=== PATIENT | male | born 1970 | race Caucasian/White ===

== ENCOUNTER → 2017-07-17 | Outpatient (REF) | payer OTHER, MEDICAID | LOC: M SFHCPLAZ 10:39 | PROVIDERS: ATTEND Nurse Practitioner Adult Health | DX: Z00.00 Encounter for general adult medical examination without abnormal findings (principal); K76.0 Fatty (change of) liver, not elsewhere classified; R74.8 Abnormal levels of other serum enzymes ==

== ENCOUNTER → 2018-01-08 | Outpatient (REF) | payer OTHER, MEDICAID ==
[2018-01-08 14:08] LABS: HEMOGLOBIN 13.7 g/dl (13.5-17.5); MEAN CORPUSCULAR HEMOGLOBIN 29.5 pg (27.0-33.0); MEAN CORPUSCULAR HGB CONC 34.3 g/dl (32.0-36.5); MEAN CORPUSCULAR VOLUME 86.2 fl (80.0-96.0); PLATELET COUNT, AUTOMATED 308 10^3/uL (150-450); RED BLOOD COUNT 4.64 10^6/uL (4.30-6.10); RED CELL DISTRIBUTION WIDTH 12.3 % (11.5-14.5); WHITE BLOOD COUNT 9.1 10^3/uL (4.0-10.0)
[2018-01-08 14:23] LABS: TOTAL 25(OH) VITAMIN D 21.5 NG/ML (30.0-100.0)
[2018-01-08 14:39] LABS: ALBUMIN 4.1 GM/DL (3.2-5.2); ALBUMIN/GLOBULIN RATIO 1.14 (1.00-1.93); ALKALINE PHOSPHATASE 20 U/L (45-117); ALT/SGPT 35 U/L (12-78); ANION GAP 6 MEQ/L (8-16); AST/SGOT 22 U/L (7-37); BILIRUBIN,TOTAL 0.3 MG/DL (0.2-1.0); BLOOD UREA NITROGEN 11 MG/DL (7-18); CALCIUM LEVEL 9.5 MG/DL (8.5-10.1); CARBON DIOXIDE LEVEL 29 MEQ/L (21-32); CHLORIDE LEVEL 105 MEQ/L (98-107); CHOLESTEROL LEVEL 217 MG/DL (<200); CHOLESTEROL RISK RATIO 4.822 (<5); CREATININE FOR GFR 0.87 MG/DL (0.70-1.30); GLOMERULAR FILTRATION RATE > 60.0 (>60); GLUCOSE, FASTING 84 MG/DL (70-100); HDL CHOLESTEROL 45 MG/DL (>40); LDL CHOLESTEROL 127.8 MG/DL (<100); NON-HDL-C 172 MG/DL; POTASSIUM SERUM 4.4 MEQ/L (3.5-5.1); SODIUM LEVEL 140 MEQ/L (136-145); TOTAL PROTEIN 7.7 GM/DL (6.4-8.2); TRIGLYCERIDES LEVEL 221 MG/DL (<150)
[2018-01-08 14:56] LABS: ESTIMATED AVERAGE GLUCOSE 103 MG/DL (60-110); HEMOGLOBIN A1c 5.2 %
== END ==
LOC: M SFHCPLAZ 10:43
DX: K76.0 Fatty (change of) liver, not elsewhere classified (principal); Z86.39 Personal history of other endocrine, nutritional and metabolic disease; E78.00 Pure hypercholesterolemia, unspecified; R74.8 Abnormal levels of other serum enzymes; I10 Essential (primary) hypertension

== ENCOUNTER → 2018-01-31 | Outpatient (REF) | payer OTHER, MEDICAID ==
[2018-02-13 08:06] LABS: AMPHETAMINE SCREEN, URINE Negative ng/mL (Cutoff=1000); BARBITURATES SCREEN, URINE Negative ng/mL (Cutoff=200); BENZODIAZEPINES, URINE SCREEN Negative ng/mL (Cutoff=200); CANNABINOID SCREEN, URINE Negative ng/mL (Cutoff=20); COCAINE SCREEN, URINE Negative ng/mL (Cutoff=300); FENTANYL URINE SCREEN Negative pg/mL (Cutoff=2000); METHADONE, URINE SCREEN Negative ng/mL (Cutoff=300); NALOXONE RESULT Positive (.); OPIATE SCREEN, URINE Negative ng/mL (Cutoff=300); OXYCODONE, SCREEN, URINE Negative ng/mL (Cutoff=100); PCP SCREEN, URINE Negative ng/mL (Cutoff=25); SPECIFIC GRAVITY, URINE 1.024 (.); URINE BUPRENORPHINE Positive (.); URINE BUPRENORPHINE Positive (Cutoff=10); URINE BUPRENORPHINE See Final Results ng/mL (Cutoff=10); URINE BUPRENORPHINE CONFIRM 282 ng/mL (Cutoff=10); URINE NORBUPRENORPHINE Positive (.); URINE NORBUPRENORPHINE CONFIRM 870 ng/mL (Cutoff=10); pH, URINE 5.5 (4.5-8.9)
== END ==
LOC: M LAB REF 09:09
DX: F11.21 Opioid dependence, in remission (principal)

== ENCOUNTER → 2018-03-21 | Outpatient (REF) | payer OTHER, MEDICAID ==
[2018-03-21 19:47] LABS: ALBUMIN 3.9 GM/DL (3.2-5.2); ALBUMIN/GLOBULIN RATIO 1.08 (1.00-1.93); ALKALINE PHOSPHATASE 22 U/L (45-117); ALT/SGPT 64 U/L (12-78); ANION GAP 7 MEQ/L (8-16); AST/SGOT 43 U/L (7-37); BILIRUBIN,TOTAL 0.3 MG/DL (0.2-1.0); BLOOD UREA NITROGEN 19 MG/DL (7-18); CALCIUM LEVEL 9.2 MG/DL (8.5-10.1); CARBON DIOXIDE LEVEL 31 MEQ/L (21-32); CHLORIDE LEVEL 103 MEQ/L (98-107); CREATININE FOR GFR 0.97 MG/DL (0.70-1.30); GLOMERULAR FILTRATION RATE > 60.0 (>60); GLUCOSE, FASTING 88 MG/DL (70-100); POTASSIUM SERUM 3.9 MEQ/L (3.5-5.1); SODIUM LEVEL 141 MEQ/L (136-145); TOTAL PROTEIN 7.5 GM/DL (6.4-8.2)
== END ==
LOC: M LAB REF 19:09
DX: I10 Essential (primary) hypertension (principal)
CPT/HCPCS: 80053

== ENCOUNTER → 2018-06-20 | Outpatient (REF) | payer OTHER, MEDICAID ==
[2018-06-20 13:29] LABS: ALBUMIN 4.2 GM/DL (3.2-5.2); ALBUMIN/GLOBULIN RATIO 1.45 (1.00-1.93); ALKALINE PHOSPHATASE 24 U/L (45-117); ALT/SGPT 59 U/L (12-78); ANION GAP 5 MEQ/L (8-16); AST/SGOT 29 U/L (7-37); BILIRUBIN,TOTAL 0.4 MG/DL (0.2-1.0); BLOOD UREA NITROGEN 15 MG/DL (7-18); CALCIUM LEVEL 9.4 MG/DL (8.5-10.1); CARBON DIOXIDE LEVEL 31 MEQ/L (21-32); CHLORIDE LEVEL 105 MEQ/L (98-107); GLOMERULAR FILTRATION RATE > 60.0 (>60); GLUCOSE, FASTING 100 MG/DL (70-100); POTASSIUM SERUM 4.5 MEQ/L (3.5-5.1); SODIUM LEVEL 141 MEQ/L (136-145); TOTAL PROTEIN 7.1 GM/DL (6.4-8.2)
== END ==
LOC: M LAB REF 12:28
DX: I10 Essential (primary) hypertension (principal)
CPT/HCPCS: 80053

== ENCOUNTER → 2018-08-14 | Outpatient (REF) | payer OTHER, MEDICAID ==
[2018-08-14 13:50] LABS: CHOLESTEROL LEVEL 259 MG/DL (<200); CHOLESTEROL RISK RATIO 6.166 (<5); HDL CHOLESTEROL 42 MG/DL (>40); LDL CHOLESTEROL 176 MG/DL (<100); NON-HDL-C 217 MG/DL; TRIGLYCERIDES LEVEL 204 MG/DL (<150)
== END ==
LOC: M LAB REF 12:15
DX: E78.49 Other hyperlipidemia (principal)

== ENCOUNTER → 2018-11-13 | Outpatient (REF) | payer OTHER, MEDICAID | LOC: M LAB REF 14:22 | PROVIDERS: ATTEND Surgery | DX: C44.41 Basal cell carcinoma of skin of scalp and neck (principal) ==

== ENCOUNTER 2018-12-04 20:49 | Emergency (ER) | payer OTHER, SELFPAY ==
[~2018-12-04] VITALS: Ht 157.5 cm; Wt 75.5 kg
[~2018-12-04 20:49] MED LIST: BUPR8SUB SL; LISI-538 PO; OMEP40CA2 PO; PROP10TA56 PO
[2018-12-04 22:19] LABS: INFLUENZA A AMPLIFICATION NEGATIVE (NEGATIVE); INFLUENZA B AMPLIFICATION NEGATIVE (NEGATIVE)
--- NOTE | 2018-12-04 22:26 | REP ---
Clinical: Cough . Comparison: None . Technique: PA and lateral. Findings: The mediastinum and cardiac silhouette are normal. The lung lozano are clear and without acute consolidation, effusion, or pneumothorax. The skeletal structures are intact and normal. Impression: 1. No acute cardiopulmonary process. Electronically Signed by Jamison Xiong MD 12/04/2018 10:17 P
[2018-12-05] MEDS ORDERED: MAGICMW SSP (00:24)
[2018-12-05] MEDS ORDERED: TESS100C PO (00:24)
[2018-12-05] MEDS ORDERED: CLAR10CA3 PO (00:24)
[2018-12-05] MEDS ORDERED: MAGIC MOUTHWASH SUSPENSION BTL SS ONE (00:30)
[2018-12-05] MEDS ORDERED: dexameTHASONE 4 MG/ML 1ML VIAL (J1100) PO ONE (00:30)
[2018-12-05 00:58] VITALS: BP 140/88
== END 2018-12-05 01:04 | disposition home or self-care (01) ==
LOC: M ED 20:49
DX: J02.9 Acute pharyngitis, unspecified (principal); R05 Cough; I10 Essential (primary) hypertension; K21.9 Gastro-esophageal reflux disease without esophagitis; Z87.891 Personal history of nicotine dependence; Z79.899 Other long term (current) drug therapy
CPT/HCPCS: 71046; 87502; 87880; 99284; J1100

== ENCOUNTER 2018-12-12 08:33 | Day surgery (SDC) | payer OTHER, SELFPAY ==
[~2018-12-12] VITALS: Ht 157.5 cm; Wt 70.3 kg
[~2018-12-12 08:33] MED LIST changes: +CLAR10CA3 PO; +MAGICMW SSP; +NS 1,000 ML IV ONE; +TESS100C PO
[2018-12-12] MEDS ORDERED: PROPOFOL 200 MG/20 ML VIAL As Ordered ONE (09:48)
[2018-12-12] MEDS ORDERED: LIDOCAINE 2% INJ 100 MG/5 ML SDV (FOR ANES.) As Ordered ONE (09:48)
[2018-12-12] MEDS ORDERED: METOPROLOL 5 MG/5 ML VIAL As Ordered ONE (10:01)
--- NOTE | 2018-12-12 10:19 | ROOR ---
Patient Name: Chinedu Cannon Procedure Date: 12/12/2018 9:46 AM Date of : 1970 Age: 48 Room: [facility] Gender: Male Note Status: Finalized Procedure: Upper GI endoscopy Indications: Heartburn, Follow-up of esophageal reflux Providers: Hubert Johnson MD Referring MD: Tor QUIROZ MD Requesting Provider: Medicines: Monitored Anesthesia Care Complications: No immediate complications. Procedure: Pre-Anesthesia Assessment: - Prior to the procedure, a History and Physical was performed, and patient medications and allergies were reviewed. The patient is competent. The risks and benefits of the procedure and the sedation options and risks were discussed with the patient. All questions were answered and informed consent was obtained. Patient identification and proposed procedure were verified by the physician, the nurse and the anesthesiologist in the endoscopy suite. Mental Status Examination: alert and oriented. Airway Examination: normal oropharyngeal airway and neck mobility. Respiratory Examination: clear to auscultation. CV Examination: normal. Prophylactic Antibiotics: The patient does not require prophylactic antibiotics. Prior Anticoagulants: The patient has taken no previous anticoagulant or antiplatelet agents. ASA Grade Assessment: II - A patient with mild systemic disease. After reviewing the risks and benefits, the patient was deemed in satisfactory condition to undergo the procedure. The anesthesia plan was to use monitored anesthesia care (MAC). Immediately prior to administration of medications, the patient was re-assessed for adequacy to receive sedatives. The heart rate, respiratory rate, oxygen saturations, blood pressure, adequacy of pulmonary ventilation, and response to care were monitored throughout the procedure. The physical status of the patient was re-assessed after the procedure. The Endoscope was introduced through the mouth, and advanced to the second part of duodenum. The upper GI endoscopy was accomplished without difficulty. The patient tolerated the procedure well. Findings: The Z-line was irregular and was found 37 cm from the incisors. This was biopsied with a cold forceps for histology. Estimated blood loss was minimal. A small hiatal hernia was present. The entire examined stomach was normal. The examined duodenum was normal. Impression: - Z-line irregular, 37 cm from the incisors. Biopsied. - Small hiatal hernia. - Normal stomach. - Normal examined duodenum. Recommendation: - Discharge patient to home (ambulatory). - Continue present medications. - Telephone my office for pathology results in 1 week. Hubert Johnson MD Hubert Johnson MD 12/12/2018 10:19:50 AM Electronically signed by Hubert Johnson MD Number of Addenda: 0 Note Initiated On: 12/12/2018 9:46 AM Estimated Blood Loss: Estimated blood loss: none.
--- NOTE | 2018-12-12 10:22 | ROOR ---
Patient Name: Chinedu Cannon Procedure Date: 12/12/2018 9:48 AM Date of : 1970 Age: 48 Room: [facility] Gender: Male Note Status: Finalized Procedure: Colonoscopy Indications: Screening for colorectal malignant neoplasm Providers: Hbuert Johnson MD Referring MD: Tor QUIROZ MD Requesting Provider: Medicines: Monitored Anesthesia Care Complications: No immediate complications. Procedure: Pre-Anesthesia Assessment: - Prior to the procedure, a History and Physical was performed, and patient medications and allergies were reviewed. The patient is competent. The risks and benefits of the procedure and the sedation options and risks were discussed with the patient. All questions were answered and informed consent was obtained. Patient identification and proposed procedure were verified by the physician, the nurse and the anesthesiologist in the endoscopy suite. Mental Status Examination: alert and oriented. Airway Examination: normal oropharyngeal airway and neck mobility. Respiratory Examination: clear to auscultation. CV Examination: normal. Prophylactic Antibiotics: The patient does not require prophylactic antibiotics. Prior Anticoagulants: The patient has taken no previous anticoagulant or antiplatelet agents. ASA Grade Assessment: II - A patient with mild systemic disease. After reviewing the risks and benefits, the patient was deemed in satisfactory condition to undergo the procedure. The anesthesia plan was to use monitored anesthesia care (MAC). Immediately prior to administration of medications, the patient was re-assessed for adequacy to receive sedatives. The heart rate, respiratory rate, oxygen saturations, blood pressure, adequacy of pulmonary ventilation, and response to care were monitored throughout the procedure. The physical status of the patient was re-assessed after the procedure. The Colonoscope was introduced through the anus and advanced to the cecum, identified by appendiceal orifice and ileocecal valve. The colonoscopy was performed without difficulty. The patient tolerated the procedure well. The quality of the bowel preparation was good. Findings: The perianal and digital rectal examinations were normal. A few small-mouthed diverticula were found in the sigmoid colon. The entire examined colon appeared normal. No additional abnormalities were found on retroflexion. Impression: - Diverticulosis in the sigmoid colon. - The entire examined colon is normal. - No specimens collected. Recommendation: - Discharge patient to home (ambulatory). - Repeat colonoscopy in 10 years for screening purposes. Hubert Johnson MD Hubert Johnson MD 12/12/2018 10:22:00 AM Electronically signed by Hubert Johnson MD Number of Addenda: 0 Note Initiated On: 12/12/2018 9:48 AM Estimated Blood Loss: Estimated blood loss: none. Estimated blood loss: none.
[2018-12-12 10:46] VITALS: BP 131/82
== END 2018-12-12 11:00 | disposition home or self-care (01) ==
LOC: M OPP 08:33
PROVIDERS: ATTEND Surgery
DX: Z12.11 Encounter for screening for malignant neoplasm of colon (principal); R12 Heartburn; K21.9 Gastro-esophageal reflux disease without esophagitis; K57.30 Diverticulosis of large intestine without perforation or abscess without bleeding; K22.8 Other specified diseases of esophagus; K44.9 Diaphragmatic hernia without obstruction or gangrene; I10 Essential (primary) hypertension; E78.00 Pure hypercholesterolemia, unspecified; Z88.8 Allergy status to other drugs, medicaments and biological substances; Z87.891 Personal history of nicotine dependence; Z79.899 Other long term (current) drug therapy

== ENCOUNTER → 2019-03-19 | Outpatient (CLI) | payer OTHER ==
[~2019-03-19] MED LIST changes: +AIRD1INH2 INH; +ATOR1TAB19 PO; +DOXY100C37 PO; -NS 1,000 ML IV ONE; -OMEP40CA2 PO; +OMEP40CA97 PO; +PRAV1TAB39 PO; +VENTAER INH
[2019-03-19 20:26] LABS: BASO % 0.4 % (0.0-1.0); EOS # 0.3 10^3/uL (0.0-0.50); EOS % 3.9 % (0.0-3.0); HEMATOCRIT 39.8 % (42.0-52.0); HEMOGLOBIN 13.5 g/dl (13.5-17.5); LYMPH # 2.7 10^3/uL (1.5-4.5); LYMPH % 35.2 % (24.0-44.0); MEAN CORPUSCULAR HEMOGLOBIN 30.2 pg (27.0-33.0); MEAN CORPUSCULAR HGB CONC 33.9 g/dl (32.0-36.5); MONO # 0.9 10^3/uL (0.0-0.8); MONO % 11.6 % (0.0-5.0); NEUTROPHILS # 3.7 10^3/uL (1.8-7.7); NEUTROPHILS % 48.5 % (36.0-66.0); PLATELET COUNT, AUTOMATED 225 10^3/uL (150-450); RED BLOOD COUNT 4.47 10^6/uL (4.30-6.10); WHITE BLOOD COUNT 7.5 10^3/uL (4.0-10.0)
[2019-03-19 20:27] LABS: ALT/SGPT 71 U/L (12-78); BILIRUBIN,TOTAL 0.2 MG/DL (0.2-1.0); BLOOD UREA NITROGEN 18 MG/DL (7-18); CALCIUM LEVEL 9.7 MG/DL (8.5-10.1); CARBON DIOXIDE LEVEL 28 MEQ/L (21-32); CHLORIDE LEVEL 104 MEQ/L (98-107); CREATININE FOR GFR 1.06 MG/DL (0.70-1.30); GLOMERULAR FILTRATION RATE > 60.0 (>56); GLUCOSE, FASTING 109 MG/DL (70-100); POTASSIUM SERUM 3.9 MEQ/L (3.5-5.1); SODIUM LEVEL 141 MEQ/L (136-145); TOTAL PROTEIN 7.4 GM/DL (6.4-8.2)
[2019-03-22 00:06] LABS: Lyme Disease IgG/IgM Antibodie <0.91 ISR (0.00-0.90); Lyme Disease IgM Ab Quantitati <0.80 index (0.00-0.79)
== END ==
LOC: M WUC 17:22
PROVIDERS: ATTEND Physician Assistant
DX: R25.2 Cramp and spasm (principal)

== ENCOUNTER → 2019-04-18 | Outpatient (REF) | payer OTHER ==
[2019-04-18 13:44] LABS: ALBUMIN 4.1 GM/DL (3.2-5.2); ALT/SGPT 105 U/L (12-78); BILIRUBIN,TOTAL 0.4 MG/DL (0.2-1.0); BLOOD UREA NITROGEN 16 MG/DL (7-18); CALCIUM LEVEL 9.7 MG/DL (8.5-10.1); CARBON DIOXIDE LEVEL 29 MEQ/L (21-32); CHLORIDE LEVEL 102 MEQ/L (98-107); CREATININE FOR GFR 0.95 MG/DL (0.70-1.30); GLOMERULAR FILTRATION RATE > 60.0 (>56); GLUCOSE, FASTING 79 MG/DL (70-100); MAGNESIUM LEVEL 2.5 MG/DL (1.8-2.4); POTASSIUM SERUM 4.7 MEQ/L (3.5-5.1); SODIUM LEVEL 140 MEQ/L (136-145)
[2019-04-18 14:45] LABS: HEMOGLOBIN A1c 5.4 %
== END ==
LOC: M LAB REF 12:23
PROVIDERS: ATTEND Nurse Practitioner Family
DX: R25.2 Cramp and spasm (principal)

== ENCOUNTER → 2019-04-20 | Outpatient (CLI) | payer OTHER ==
[~2019-04-20] MED LIST changes: -AIRD1INH2 INH; -ATOR1TAB19 PO; -DOXY100C37 PO; +OMEP40CA2 PO; -OMEP40CA97 PO; -PRAV1TAB39 PO; -VENTAER INH
[2019-04-20 11:22] LABS: ALBUMIN 3.8 GM/DL (3.2-5.2); ALT/SGPT 87 U/L (12-78); BILIRUBIN,TOTAL 0.3 MG/DL (0.2-1.0); BLOOD UREA NITROGEN 20 MG/DL (7-18); CALCIUM LEVEL 9.4 MG/DL (8.5-10.1); CARBON DIOXIDE LEVEL 28 MEQ/L (21-32); CHLORIDE LEVEL 107 MEQ/L (98-107); CHOLESTEROL LEVEL 285 MG/DL (<200); CHOLESTEROL RISK RATIO 6.477 (<5); CREATININE FOR GFR 0.84 MG/DL (0.70-1.30); GLOMERULAR FILTRATION RATE > 60.0 (>56); GLUCOSE, FASTING 103 MG/DL (70-100); HDL CHOLESTEROL 44 MG/DL (>40); LDL CHOLESTEROL 185 MG/DL (<100); NON-HDL-C 241 MG/DL; POTASSIUM SERUM 4.3 MEQ/L (3.5-5.1); SODIUM LEVEL 139 MEQ/L (136-145); TOTAL PROTEIN 7.1 GM/DL (6.4-8.2); TRIGLYCERIDES LEVEL 280 MG/DL (<150)
== END ==
LOC: M WUC 08:59
PROVIDERS: ATTEND Nurse Practitioner Family
DX: Z00.01 Encounter for general adult medical examination with abnormal findings (principal)

== ENCOUNTER → 2019-06-14 | Outpatient (CLI) | payer OTHER ==
[~2019-06-14] MED LIST changes: -OMEP40CA2 PO; +OMEP40CA97 PO
[2019-06-14 12:14] LABS: ALBUMIN 3.9 GM/DL (3.2-5.2); ALT/SGPT 86 U/L (12-78); BILIRUBIN,TOTAL 0.5 MG/DL (0.2-1.0); BLOOD UREA NITROGEN 18 MG/DL (7-18); CALCIUM LEVEL 9.4 MG/DL (8.5-10.1); CARBON DIOXIDE LEVEL 29 MEQ/L (21-32); CHLORIDE LEVEL 104 MEQ/L (98-107); CPK CREATINE PHOSPHOKINASE 259 U/L (39-308); CREATININE FOR GFR 1.01 MG/DL (0.70-1.30); GLOMERULAR FILTRATION RATE > 60.0 (>56); GLUCOSE, FASTING 101 MG/DL (70-100); MYOGLOBIN 63 NG/ML (16-116); POTASSIUM SERUM 4.5 MEQ/L (3.5-5.1); SODIUM LEVEL 140 MEQ/L (136-145); TOTAL PROTEIN 7.2 GM/DL (6.4-8.2)
== END ==
LOC: M WUC 09:15
PROVIDERS: ATTEND Nurse Practitioner Family
DX: M79.10 Myalgia, unspecified site (principal); R74.8 Abnormal levels of other serum enzymes

== ENCOUNTER → 2019-06-25 | Outpatient (CLI) | payer OTHER ==
[2019-06-25 20:43] LABS: CPK CREATINE PHOSPHOKINASE 542 U/L (39-308); NT-PRO BNP 59 PG/ML (<125)
== END ==
LOC: M WUC 15:53
PROVIDERS: ATTEND Internal Medicine Cardiovascular Disease
DX: R06.02 Shortness of breath (principal); M79.10 Myalgia, unspecified site

== ENCOUNTER → 2019-06-27 | Outpatient (CLI) | payer OTHER ==
[2019-06-27 10:34] LABS: ALBUMIN 3.9 GM/DL (3.2-5.2); ALT/SGPT 87 U/L (12-78); BILIRUBIN,TOTAL 0.4 MG/DL (0.2-1.0); BLOOD UREA NITROGEN 14 MG/DL (7-18); CALCIUM LEVEL 9.5 MG/DL (8.5-10.1); CARBON DIOXIDE LEVEL 30 MEQ/L (21-32); CHLORIDE LEVEL 103 MEQ/L (98-107); CHOLESTEROL LEVEL 191 MG/DL (<200); CHOLESTEROL RISK RATIO 3.979 (<5); CPK CREATINE PHOSPHOKINASE 344 U/L (39-308); CREATININE FOR GFR 0.89 MG/DL (0.70-1.30); GLOMERULAR FILTRATION RATE > 60.0 (>56); GLUCOSE, FASTING 91 MG/DL (70-100); HDL CHOLESTEROL 48 MG/DL (>40); LDL CHOLESTEROL 114 MG/DL (<100); MYOGLOBIN 73 NG/ML (16-116); NON-HDL-C 143 MG/DL; POTASSIUM SERUM 4.8 MEQ/L (3.5-5.1); SODIUM LEVEL 140 MEQ/L (136-145); TOTAL PROTEIN 7.3 GM/DL (6.4-8.2); TRIGLYCERIDES LEVEL 147 MG/DL (<150)
== END ==
LOC: M WUC 08:08
PROVIDERS: ATTEND Nurse Practitioner Family
DX: M79.10 Myalgia, unspecified site (principal)

== ENCOUNTER → 2019-06-28 | Outpatient (CLI) | payer OTHER ==
[~2019-06-28] MED LIST changes: +ISOVUE-370 76% 100ML VIAL (Q9967) As Ordered ONE
--- NOTE | 2019-07-01 09:02 | REP ---
Clinical: Shortness of breath and acute chest pain . Technique: Axial contrast enhanced images from the thoracic inlet to the upper abdomen using 100 ml Isovue 370 intravenous contrast material with multiplanar re-formations. Findings: Satisfactory enhancement of the pulmonary vasculature is achieved and no filling defects are identified to suggest pulmonary embolus. Further evaluation of the mediastinum demonstrates normal thoracic aorta, heart and pericardium. The bilateral lung lozano are well aerated and clear without consolidation pleural effusion or pneumothorax. Tracheobronchial tree is patent. No nodule or mass lesion is identified. No adenopathy noted. Surrounding musculoskeletal structures intact Impression: No evidence for pulmonary embolus. Normal thoracic aorta. No acute mediastinal or pleural parenchymal process. Electronically Signed by Jamison Xiong MD 07/01/2019 08:53 A
== END ==
LOC: M RAD 17:29
PROVIDERS: ATTEND Internal Medicine Cardiovascular Disease
DX: R07.9 Chest pain, unspecified (principal)
CPT/HCPCS: 71275; Q9967

== ENCOUNTER → 2019-07-26 | Outpatient (REF) | payer OTHER ==
[~2019-07-26] MED LIST changes: +AIRD1INH2 INH; +ATOR1TAB19 PO; +DOXY100C37 PO; -ISOVUE-370 76% 100ML VIAL (Q9967) As Ordered ONE; +PRAV1TAB39 PO; +VENTAER INH
[2019-07-26 18:07] LABS: COMPLEMENT C3 151 MG/DL (90-180); COMPLEMENT C4 21 MG/DL (10-40); RHEUMATOID FACTOR QUANT < 10.0 IU/ML (<15.0); URIC ACID 5.8 MG/DL (3.5-7.2)
== END ==
LOC: M LAB REF 16:40
PROVIDERS: ATTEND Nurse Practitioner Family
DX: M79.10 Myalgia, unspecified site (principal)

== ENCOUNTER 2019-07-28 11:44 | Inpatient (IN) | payer OTHER ==
[~2019-07-28] VITALS: Ht 157.5 cm; Wt 73.3 kg
[~2019-07-28 11:44] MED LIST changes: -AIRD1INH2 INH; -ATOR1TAB19 PO; -DOXY100C37 PO; -PRAV1TAB39 PO; -VENTAER INH
[2019-07-28] MEDS ORDERED: ATOR1TAB19 PO (11:56)
[2019-07-28] MEDS ORDERED: DOXY100C37 PO (11:56)
[2019-07-28 12:32] LABS: BASO % 0.6 % (0.0-1.0); EOS # 0.2 10^3/uL (0.0-0.5); EOS % 2.7 % (0.0-3.0); HEMATOCRIT 39.3 % (42.0-52.0); HEMOGLOBIN 13.3 g/dl (13.5-17.5); LYMPH % 31.5 % (24.0-44.0); MEAN CORPUSCULAR HEMOGLOBIN 30.1 pg (27.0-33.0); MEAN CORPUSCULAR HGB CONC 33.8 g/dl (32.0-36.5); MEAN CORPUSCULAR VOLUME 88.9 fl (80.0-96.0); MONO # 0.9 10^3/uL (0.0-0.8); MONO % 13.6 % (0.0-5.0); NEUTROPHILS # 3.3 10^3/uL (1.5-8.5); NEUTROPHILS % 51.3 % (36.0-66.0); PLATELET COUNT, AUTOMATED 208 10^3/uL (150-450); RED BLOOD COUNT 4.42 10^6/uL (4.30-6.10); WHITE BLOOD COUNT 6.4 10^3/uL (4.0-10.0)
--- NOTE | 2019-07-28 12:38 | REP ---
REASON: Stroke-like symptoms. COMPARISON: 12/04/2007 TECHNIQUE: 4.5 mm contiguous transaxial sections were obtained from the skull base to the cerebral convexities with thin cuts through the posterior fossa without the administration of intravenous contrast. FINDINGS: The ventricles and sulci are consistent with the patient's age. There are no extra-axial fluid collections. There is no mass effect. The deep cerebral white matter is consistent with the patient's age. The orbital and petrous structures , cerebellopontine angles, and posterior fossa are unremarkable. The sella turcica, cavernous, and paracavernous structures are essentially unremarkable. The visualized portions of the paranasal sinuses and mastoid air cells are clear. Images of the skull base show no gross abnormality. IMPRESSION: Essentially unremarkable CT examination of the brain. No significant change from the prior exam. Electronically Signed by Karlos Leos DO 07/28/2019 12:40 P
[2019-07-28 12:48] LABS: INR 1.01; PARTIAL THROMBOPLASTIN TIME 26.7 SECONDS (25.0-38.4)
[2019-07-28 13:01] LABS: ALT/SGPT 79 U/L (12-78); BILIRUBIN,DIRECT < 0.1 MG/DL (0.0-0.2); BILIRUBIN,TOTAL 0.3 MG/DL (0.2-1.0); BLOOD UREA NITROGEN 13 MG/DL (7-18); CALCIUM LEVEL 9.5 MG/DL (8.5-10.1); CARBON DIOXIDE LEVEL 28 MEQ/L (21-32); CHLORIDE LEVEL 106 MEQ/L (98-107); CK-MB VALUE MASS 3.3 NG/ML (<3.6); CPK CREATINE PHOSPHOKINASE 326 U/L (39-308); CREATININE FOR GFR 0.89 MG/DL (0.70-1.30); GLOMERULAR FILTRATION RATE > 60.0 (>56); GLUCOSE, FASTING 80 MG/DL (70-100); MAGNESIUM LEVEL 2.1 MG/DL (1.8-2.4); MB/CK RELATIVE INDEX 1.01 (< OR =4); SODIUM LEVEL 141 MEQ/L (136-145); TOTAL PROTEIN 7.5 GM/DL (6.4-8.2); TROPONIN I < 0.02 NG/ML (< 0.10)
--- NOTE | 2019-07-28 13:35 | REP ---
REASON: Stroke-like symptoms. CHEST PORTABLE: FINDINGS: The technique utilized in obtaining the radiograph has magnified the cardiac silhouette and accentuated the interstitial markings. The superior mediastinal structures are midline. The cardiac silhouette is unremarkable in size, shape, and position. The diaphragmatic surfaces of the lungs are regular, and the costophrenic angles are clear. The pulmonary lozano are clear. The imaged osseous structures are intact. IMPRESSION: There is no acute cardiopulmonary disease. The cardiac silhouette is magnified by technique. Electronically Signed by Karlos Leos DO 07/28/2019 02:10 P
[2019-07-28] MEDS ORDERED: ASPIRIN 325 MG TAB PO ONE (13:45)
[2019-07-28] MEDS ORDERED: VENTAER INH (13:59)
[2019-07-28] MEDS ORDERED: AIRD1INH2 INH (13:59)
[2019-07-28] MEDS ORDERED: ALBUTEROL 90 MCG/ACT 8GM HFA INHALER INH PRN (14:30)
--- NOTE | 2019-07-28 16:10 | REPVR ---
PROCEDURE INFORMATION: Exam: MR Head Without Contrast Exam date and time: 07/28/2019 3:25 PM Age: 48 years old Clinical history: Weakness, extremity; Patient HX: Unexplained left sided weakness, parenthesis, CT on pacs; Additional info: Left sided paresthesia TECHNIQUE: Imaging protocol: MR of the head without contrast. COMPARISON: CT Head without contrast 07/28/2019 11:58 AM FINDINGS: Brain: Normal. No acute infarct. No hemorrhage. No significant white matter disease. No edema. Ventricles: Normal. No ventriculomegaly. Bones/joints: Unremarkable. Soft tissues: Unremarkable. Sinuses: Normal as visualized. No acute sinusitis. Mastoid air cells: Normal as visualized. No mastoid effusion. Orbits: Unremarkable. IMPRESSION: No acute intracranial abnormality. Electronically signed by: Memo Pate On 07/28/2019 16:09:41 PM
--- NOTE | 2019-07-28 16:12 | REPVR ---
PROCEDURE INFORMATION: Exam: MR Angiogram Head Without Contrast, Arteries Exam date and time: 07/28/2019 3:25 PM Age: 48 years old Clinical history: Weakness; Additional info: Left ue/le paresthesia. Unexplained left sided weakness, parenthesis, CT on pacs TECHNIQUE: Imaging protocol: MR angiogram head without contrast. Exam focused on the arteries. 3D rendering: MIP reconstructed images were created and reviewed. COMPARISON: CT Head without contrast 07/28/2019 11:58 AM FINDINGS: Right internal carotid artery: Unremarkable. Intracranial segment is patent with no significant stenosis. No aneurysm. Right anterior cerebral artery: Unremarkable. No occlusion or significant stenosis. No aneurysm. Right middle cerebral artery: Unremarkable. No occlusion or significant stenosis. No aneurysm. Right posterior cerebral artery: Unremarkable. No occlusion or significant stenosis. No aneurysm. Right vertebral artery: Unremarkable. No occlusion or significant stenosis. No aneurysm. Left internal carotid artery: Unremarkable. Intracranial segment is patent with no significant stenosis. No aneurysm. Left anterior cerebral artery: Unremarkable. No occlusion or significant stenosis. No aneurysm. Left middle cerebral artery: Unremarkable. No occlusion or significant stenosis. No aneurysm. Left posterior cerebral artery: Unremarkable. No occlusion or significant stenosis. No aneurysm. Left vertebral artery: Unremarkable. No occlusion or significant stenosis. No aneurysm. Basilar artery: Unremarkable. No occlusion or significant stenosis. No aneurysm. IMPRESSION: No acute intracranial abnormality. Electronically signed by: Memo Pate On 07/28/2019 16:11:55 PM
--- NOTE | 2019-07-28 16:16 | REPVR ---
PROCEDURE INFORMATION: Exam: MR Angiography Neck Without Contrast Exam date and time: 07/28/2019 3:55 PM Age: 48 years old Clinical history: Numbness; Patient HX: Unexplained left sided weakness, parenthesis, CT on pacs; Additional info: Left ue/le paresthesia TECHNIQUE: Imaging protocol: Magnetic resonance angiography of the neck without contrast. 3D rendering: MIP reconstructed images were created and reviewed. COMPARISON: MRA BRAIN W/O CONTRAST 07/28/2019 3:14 PM FINDINGS: Right common carotid artery: Unremarkable. No stenosis. No dissection or occlusion. Right internal carotid artery: Unremarkable extracranial segment. No stenosis. No dissection or occlusion. Right external carotid artery: Unremarkable. No stenosis. No dissection or occlusion of the origin. Right vertebral artery: Unremarkable. No stenosis. No dissection or occlusion. Left common carotid artery: Unremarkable. No stenosis. No dissection or occlusion. Left internal carotid artery: Unremarkable extracranial segment. No stenosis. No dissection or occlusion. Left external carotid artery: Unremarkable. No stenosis. No dissection or occlusion of the origin. Left vertebral artery: Unremarkable. No stenosis. No dissection or occlusion. IMPRESSION: No acute abnormality. COMMENT: Reference per NASCET criteria for degree of stenosis: Mild: less than 50% stenosis. Moderate: 50-69% stenosis. Severe: 70-94% stenosis. Near occlusion: 95-99% stenosis. Electronically signed by: Memo Pate On 07/28/2019 16:15:44 PM
[2019-07-28 16:20] VITALS: BP 151/92
--- NOTE | 2019-07-28 16:26 | ECGEPIP ---
[facility] Test Date: 2019-07-28 Pat Name: TOSHIA CARL Department: Room: - Gender: Male Registered Nurse Renal: DIANA : 1970 Requested By: Herbert Dowd Order Number: [id number] Reading MD: Alireza Quesada Measurements Intervals [place] Rate: 64 P: 43 KS: 170 QRS: 8 QRSD: 109 T: 0 QT: 388 QTc: 401 Interpretive Statements SINUS RHYTHM, Within normal limits. No prior ECG available for comparison at the time of interpretation. Electronically Signed on 07-28-2019 16:26:50 EST by Alireza Quesada
--- NOTE | 2019-07-28 16:34 | REPVR ---
PROCEDURE INFORMATION: Exam: MR Cervical Spine Without Contrast Exam date and time: 07/28/2019 3:55 PM Age: 48 years old Clinical history: Numbness; Patient HX: Unexplained left sided weakness, parenthesis, CT on pacs; Additional info: Left ue paresthesia TECHNIQUE: Imaging protocol: Multiplanar magnetic resonance images of the cervical spine without contrast. COMPARISON: MRA CAROTID WITHOUT CONTRAST 07/28/2019 3:37 PM FINDINGS: Vertebrae: Unremarkable. Spinal cord: Normal signal. No cord compression. C2-C3: No significant disc disease. No significant spinal stenosis. C3-C4: No significant disc disease. No significant spinal stenosis. C4-C5: Uncovertebral hypertrophy with mild bilateral neural foramina narrowing. No spinal canal stenosis. C5-C6: Disc bulge. Uncovertebral hypertrophy. Mild to moderate bilateral neural foramina narrowing. No spinal canal stenosis. C6-C7: No significant disc disease. No significant spinal stenosis. C7-T1: No significant disc disease. No significant spinal stenosis. Vertebral arteries: Expected flow voids in the vertebral arteries. Soft tissues: Unremarkable. IMPRESSION: No acute abnormality. Multilevel uncovertebral hypertrophy. Mild bilateral neuroforamina narrowing at C4-C5 and mild to moderate at C5-C6. Electronically signed by: Memo Pate On 07/28/2019 16:33:44 PM
[2019-07-28] MEDS: ENOXAPARIN 40 MG/0.4 ML SYRINGE (J1650) SC SCH (16:57)
[2019-07-28] MEDS ORDERED: LISINOPRIL 20 MG TAB PO ONE (17:00)
[2019-07-28] MEDS ORDERED: OMEPRAZOLE 20 MG CAP PO ONE (17:00)
[2019-07-28] MEDS ORDERED: PRAV1TAB39 PO (18:23)
[2019-07-28] MEDS ORDERED: NS 0.45% 1,000 ML IV ONE (19:00)
[2019-07-28] MEDS: GASTROGRAFIN SOLUTION 30ML PO SCH (19:24)
[2019-07-28] MEDS: ADVAIR HFA 115/21MCG INHALER INH SCH (19:30)
[2019-07-28 20:00] VITALS: BP 108/55
[2019-07-28] MEDS: DOXYCYCLINE HYCLATE 100 MG TAB PO SCH (20:05)
[2019-07-28] MEDS ORDERED: ISOVUE-370 76% 100ML VIAL (Q9967) As Ordered ONE (20:32)
--- NOTE | 2019-07-28 20:59 | HPE ---
DATE OF ADMISSION: 07/28/2019 PRIMARY CARE PROVIDER: [facility], Lyndsay Hanson CHIEF COMPLAINT: Numbness of the left arm and left leg. HISTORY OF PRESENT ILLNESS: 48-year-old male who presented with acute onset of left arm and left leg numbness. The left arm started at 3:30 a.m., awakening him from sleep, unable to feel the left arm. The patient states that he did not sleep on the left side. This has been occasionally happening since summertime. He describes pain in the forearm at times, rated at 6 out of 10 when it is very painful. Left lower extremity at 8:30 started to have some numbness and left foot became cramped and crimped, per the patient. The patient has had similar episodes all summer long. No lower extremity or joint swelling. The patient denies any facial involvement. No motor dysfunction. Able to ambulate without difficulty. No slurring of speech. The patient also complains of sweating at night for the past 2 days, happens about twice a week, usually soaks his bed. He felt some lightheadedness and some sweats when he was putting up lights with his father at home recently. The patient also has had some shortness of breath since December, worsened in the summer, thought to be due to chemicals and gardening, as he does quite a bit of lawn care. The patient has shortness of breath even when he is inside at home and not accompanied by chest pain, pressure or tightness. No dizziness. He had a stress test done by Dr. Quesada in May 2019, which was normal. Plans were for an echocardiogram. He falls asleep frequently during the day but says that he sleeps well at night from 8:00 p.m. to around 6:00 a.m. straight. Occasional snoring. 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 He does have a two to three pack history of smoking for about 10 years and he quit about 15 years ago. The patient denies any migraines, changes in vision. No headaches. No dysphagia or odynophagia. The patient denies any slurring of speech. CT of the brain was negative. MRI of the brain and MRA of the brain were negative. MRI of the cervical spine shows disc bulging with bilateral neuro foramina narrowing at C4-C5, moderate bilateral neuro foramina narrowing at C5-C6, but not central canal stenosis. Vertebral arteries are normal. Multilevel vertebral hypertrophy. Per neurologist, Dr. Bundy, bow maker production this evening, since the patient's MRI was normal he can be continued on 325 mg of aspirin and to followup in the office for further testing. The patient was felt to have Lyme disease and was started on doxycycline. Lyme titers are still pending. PAST MEDICAL HISTORY: 1. Hyperlipidemia. 2. Hiatal hernia. 3. Reflux disease. 4. Migraines. 5. Hearing loss. 6. Elevated liver function tests. 7. Hypertension. He had a stress test done with Dr. Quesada in May 2019, which was normal. ALLERGIES: HYDROCHLOROTHIAZIDE, LIPITOR causing muscle cramping in the legs. PAST SURGICAL HISTORY: 1. Colonoscopy by Dr. Johnson. FAMILY HISTORY: Father in his 60s with hypertension, heart disease, migraines. Mother alive with hypertension, hyperlipidemia, diabetes. Siblings: One half paternal brother, two half paternal sisters who are alive and well with headaches. One brother is an alcohol abuser. 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 Previously smoked one to two packs of cigarettes for about 10 years, quit a decade ago. and currently with a partner of 12 years. Owns his own home. [place] in [place] and has been here since the age of 14. REVIEW OF SYSTEMS: As per history of present illness, 12-point system otherwise negative. HOME MEDICATIONS: - doxycycline 100 mg twice a day - buprenorphine 8 mg sublingually daily - Aer Duo one puff inhaled daily - albuterol as needed two puffs every four hours - Lisinopril 20 mg daily - omeprazole 40 mg daily PHYSICAL EXAMINATION: VITAL SIGNS: Temperature 98.6, pulse 62, sinus, respiratory rate 18, blood pressure 151/92, 96% on room air. GENERAL: Awake, alert and oriented times three. HEENT: Slightly hard of hearing. Pupils are round and reactive to light. Extraocular muscles are intact. Normocephalic, atraumatic. No jugular venous distention (JVD). No thyromegaly. No cervical lymphadenopathy. Moist mucous membranes. LUNGS: Clear to auscultation. No wheezing, rales or rhonchi. HEART: S1, S2. Sinus rhythm. No murmurs, rubs or gallops. ABDOMEN: Obese, soft, nontender, nondistended. EXTREMITIES: No cyanosis, clubbing or pitting edema. Bilateral lower extremities have dorsalis pedis and posterior tibialis noted. SKIN: Warm and dry. Well perfused. [place] in color. NEUROLOGIC: No dysmetria on [id number] testing. Face is symmetric. Speaks in full sentences. Normal repetition. No slurring of speech. Motor function 5/5 times four extremities. No sensory disturbance. LABORATORY DATA: White count 6.4, hemoglobin 13, hematocrit 39, platelet count 208. Sodium 141, potassium 4, chloride 106, bicarbonate 28, BUN 13, creatinine 0.89, glucose 80, calcium 9.5, magnesium 2.1, total bilirubin 0.3, direct bilirubin less than 0.1, AST 34, ALT 79, alkaline phosphatase 26, total CK 326, MB fraction 3.3, relative index 1, troponin less than 0.02, total protein 7.5, albumin 4. INR 1.01. IMAGING STUDIES: MRI of the brain on 07/28/2019 showed no acute intracranial abnormality. MRA of the brain showed no acute intracranial abnormality. Carotid artery MRI showed no acute abnormality. Cervical spine MRI showed no acute abnormality. Mild bilateral neuro foraminal narrowing at C4-C5 with mild to moderate C5-C6. ASSESSMENT AND PLAN: This is a 48-year-old male who presented to the emergency room with on and off numbness of the left upper and lower extremity prompting him to come to the emergency room. MRI is negative. CURRENT ISSUES: 1. Left upper and lower extremity numbness, most likely due to peripheral neuropathy. Outpatient followup with Dr. Bundy. No acute CVA note on MRI of the brain. MRI of the cervical spine shows neuro foraminal narrowing. Defer for EMG studies. Check TSH level. Rule out carpal tunnel. May need lumbar spine MRI. 2. Elevated CPK, most likely due to myositis from statins. The patient is changed to Pravachol. 3. History of hyperlipidemia. Check lipid profile in the morning and start on Pravachol. 4. Shortness of breath. Pulmonary function tests as an outpatient. Currently no wheezing on examination. The patient had a stress test done, which was negative, according to the patient, read by Dr. Quesada. 5. Muscle pains. The patient's CLINT screen was normal. Rheumatoid factor was less than 150. He has normal complement levels and double stranded DNA. Rheumatoid factor was less than 10, but there is no joint bogginess. 6. Reflux. Continue on proton pump inhibitor. 7. Hypertension. Continue on Lisinopril for now. 8. Probable Lyme disease. Serology testing is pending. Previous IgG, IgM in October were negative. 9. Hepatitis serology for abnormal liver function tests were negative in 2007. 10. Abnormal liver function tests. Recheck hepatitis serology. Discharge in the morning.
--- NOTE | 2019-07-28 21:34 | REPVR ---
PROCEDURE INFORMATION: Exam: CT Abdomen And Pelvis With Contrast Exam date and time: 07/28/2019 8:47 PM Age: 48 years old Clinical history: Abdominal pain; Night sweats; Additional info: R/O lymphoma TECHNIQUE: Imaging protocol: Computed tomography of the abdomen and pelvis with intravenous contrast. Radiation optimization: All CT scans at this facility use at least one of these dose optimization techniques: automated exposure control; mA and/or kV adjustment per patient size (includes targeted exams where dose is matched to clinical indication); or iterative reconstruction. Contrast material: ISOVUE 370; Contrast volume: 100 ml; Contrast route: IV; COMPARISON: Abdomen, limited US 04/14/2014 7:21:02 AM (The report from this study was not available for review at the time of this interpretation.) FINDINGS: Lungs: The imaged lung bases are clear. Heart: No cardiomegaly. No pericardial effusion. Liver: The attenuation of the liver is more than 40 Hounsfield units lower in attenuation compared to the spleen, which is compatible with fatty liver infiltration. No liver lesion is seen. The contour of the liver is smooth. No hepatomegaly is noted. The liver measures 14.5 cm in craniocaudal dimension at the level of the right mid clavicular line. Gallbladder and bile ducts: No calcified gallstones are seen. No gallbladder wall thickening, pericholecystic fluid, or pericholecystic inflammatory changes are identified. No dilation of the intrahepatic or extrahepatic bile ducts is noted. Pancreas: Normal. No ductal dilation. Spleen: Normal. No splenomegaly is noted. The spleen measures 10.2 cm in length. Incidental note is made of a small accessory spleen. Adrenals: Normal. No mass. Kidneys and ureters: The kidneys are normal in appearance. No renal lesion is identified. No calculi are seen in the kidneys or ureters. There is no hydronephrosis or hydroureter. There are no wedge-shaped areas of low attenuation in the kidneys to suggest pyelonephritis. There is no renal abscess or perinephric fluid collection. Stomach and bowel: There is no evidence for a bowel obstruction, diverticulosis, diverticulitis, colitis, pneumatosis intestinalis, intussusception, volvulus, or perforated viscus. There is a mild to moderate amount of formed stool in the colon. Appendix: The retrocecal appendix is normal. No evidence for appendicitis. Intraperitoneal space: Unremarkable. No fluid collection. No free air. Retroperitoneal space: Unremarkable. No fluid collection. No mass. Vasculature: The abdominal aorta is patent, normal in caliber, and there is no dissection. The renal arteries, celiac artery, superior mesenteric artery, inferior mesenteric artery, iliac arteries, and common femoral arteries are patent. The portal veins, splenic vein, superior mesenteric vein, inferior mesenteric vein, and renal veins are patent. Lymph nodes: There are 2 nonspecific precaval lymph nodes measuring 10 mm and 11 mm in short axis. No other abnormally enlarged lymph nodes are noted in the abdomen or pelvis. Bladder: Unremarkable. No calculi or masses are noted in the bladder. Reproductive: There are calcifications in the prostate gland. The seminal vesicles are unremarkable. Bones/joints: The imaged bony structures are intact. There is no suspicious osteolytic or osteoblastic lesion. There is a mild levoscoliosis of the lumbar spine and degenerative changes in the lumbar spine. Soft tissues: Unremarkable. No hernia. IMPRESSION: 1. Two nonspecific enlarged precaval lymph nodes. No other abnormally enlarged lymph nodes in the abdomen or pelvis. 2. No mass in the abdomen or pelvis. 3. Fatty liver. Electronically signed by: Hector Jorgensen On 07/28/2019 21:33:43 PM
[2019-07-29 04:00] VITALS: BP 116/59
[2019-07-29 08:00] VITALS: BP 140/65
[2019-07-29] MEDS: ADVAIR HFA 115/21MCG INHALER INH SCH (08:12)
[2019-07-29 08:50] LABS: HEMATOCRIT 39.6 % (42.0-52.0); HEMOGLOBIN 13.4 g/dl (13.5-17.5); MEAN CORPUSCULAR HGB CONC 33.8 g/dl (32.0-36.5); MEAN CORPUSCULAR VOLUME 88.8 fl (80.0-96.0); PLATELET COUNT, AUTOMATED 209 10^3/uL (150-450); RED BLOOD COUNT 4.46 10^6/uL (4.30-6.10); WHITE BLOOD COUNT 5.7 10^3/uL (4.0-10.0)
[2019-07-29] MEDS ORDERED: ASPIRIN ENTERIC 325 MG TAB PO SCH (09:00)
[2019-07-29] MEDS ORDERED: BUPRENORPHINE/NALOXONE 8-2MG SUBLINGUAL TABLET(SUBOXONE) SL SCH (09:00)
[2019-07-29] MEDS ORDERED: OMEPRAZOLE 20 MG CAP PO SCH (09:00)
[2019-07-29] MEDS ORDERED: LISINOPRIL 20 MG TAB PO SCH (09:00)
[2019-07-29] MEDS ORDERED: ATORVASTATIN 10 MG TAB PO SCH (09:00)
[2019-07-29] MEDS ORDERED: NON-FORMULARY 1 EA EA INH SCH (09:00)
[2019-07-29] MEDS: ENOXAPARIN 40 MG/0.4 ML SYRINGE (J1650) SC SCH (09:09)
[2019-07-29 09:10] VITALS: BP 116/59
[2019-07-29 09:10] LABS: ALBUMIN 3.7 GM/DL (3.2-5.2); ALT/SGPT 78 U/L (12-78); BILIRUBIN,TOTAL 0.3 MG/DL (0.2-1.0); BLOOD UREA NITROGEN 11 MG/DL (7-18); CALCIUM LEVEL 9.3 MG/DL (8.5-10.1); CARBON DIOXIDE LEVEL 26 MEQ/L (21-32); CHLORIDE LEVEL 106 MEQ/L (98-107); CHOLESTEROL LEVEL 195 MG/DL (<200); CHOLESTEROL RISK RATIO 4.148 (<5); CREATININE FOR GFR 0.97 MG/DL (0.70-1.30); GLOMERULAR FILTRATION RATE > 60.0 (>56); GLUCOSE, FASTING 127 MG/DL (70-100); HDL CHOLESTEROL 47 MG/DL (>40); LDL CHOLESTEROL 116 MG/DL (<100); NON-HDL-C 148 MG/DL; POTASSIUM SERUM 4.2 MEQ/L (3.5-5.1); SODIUM LEVEL 139 MEQ/L (136-145); TOTAL PROTEIN 7.6 GM/DL (6.4-8.2); TRIGLYCERIDES LEVEL 159 MG/DL (<150)
[2019-07-29] MEDS: DOXYCYCLINE HYCLATE 100 MG TAB PO SCH (09:10)
--- NOTE | 2019-07-29 13:48 | ECHO ---
DATE OF PROCEDURE: 07/29/2019 REFERRING PHYSICIAN: Dr. Grace Briggs INDICATION: Transient cerebral ischemia, unspecified. HEIGHT: 157 cm WEIGHT: 73 kg 2D MEASUREMENTS: Ventricular septum: 0.75 cm Posterior wall: 1.07 cm Left ventricle diastole: 4.6 cm Left atrium: 3.8 cm Left atrial wall index 19. LVOT: 2.0 cm Aortic root: 2.5 cm Inferior vena cava: 1.5 cm with normal respiratory variation DOPPLER MEASUREMENTS: Aortic valve velocity: 149 cm/s LVOT velocity: 129 cm/s LVOT VTI: 25.4 cm No aortic regurgitation. No mitral regurgitation. Very mild tricuspid regurgitation. No pulmonic regurgitation. Mitral E velocity: 80.5 cm/s Mitral A velocity: 40.5 cm/s Mitral deceleration time: 173 ms Very mild tricuspid regurgitation. Pulmonary acceleration time 183 ms. MITRAL ANNULAR TISSUE DOPPLER: E prime lateral: 9.85 cm/s E prime septal: 9.3 cm/s DESCRIPTION: Rhythm was sinus. Image quality was fair. No pericardial effusion. This was a 2D, M-mode, color flow Doppler and pulse wave Doppler examination and included mitral annular tissue Doppler. CONCLUSIONS: 1. Normal echocardiogram Doppler. 2. Normal left ventricle internal dimensions and wall thickness. Normal regional LV wall motion and wall thickening. Normal LV systolic function. Left ventricular ejection fraction 65-70% by visual estimate. No LV diastolic function.
[2019-07-30 14:10] LABS: ANTINUCLEAR ANTIBODIES DIRECT Negative (Negative)
--- NOTE | 2019-07-30 15:55 | DSES ---
DATE OF ADMISSION: 07/28/2019 DATE OF DISCHARGE: 07/29/2019 PRIMARY DISCHARGE DIAGNOSES: 1. Peripheral neuropathy, possible carpal tunnel syndrome bilaterally. 2. Cervical spine C4-C5, C5-C6 mild to moderate neuro foraminal narrowing. 3. Complaints of night sweats with abnormal nonspecific enlarged precaval lymph nodes. 4. Muscle cramping. 5. Hyperlipidemia. 6. Mild rhabdomyolysis with normal creatinine. 7. Muscle aches with atorvastatin. 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 He has been complaining of on and off numbness of the left arm and left leg for the past 3 months since the summertime, accompanied with some shortness of breath, which occurs with exertion. He had a stress test done, which was negative. The patient had no facial involvement or motor complaints. Also complains of significant muscle aches bilateral thighs and calves, calling them cramped and a lot of crimping. The patient was complaining of difficulty ambulating at times also with pain in his lower extremities. MRI of the brain was negative for acute CVA. MRA of the brain was negative. MRA of the carotids was negative. MRI of the cervical spine shows foraminal narrowing at C4-C5, C5-C6. Per neurologist integration manager, Dr. Bundy, the patient is continued on aspirin 325 mg daily with outpatient followup for further testing, possible EMG/nerve conduction studies, as well as lumbar spine MRI. The patient had been on doxycycline for presumed Lyme disease and had been sent to a brainer in [place] for multiple complaints. CLINT is still pending here. Rheumatoid factor was negative. The patient had complained of night sweats. CT of the abdomen and pelvis and CT of the chest were all essentially negative, but with a nonspecific finding of precaval lymph nodes. QuantiFERON testing was pending. He complains of generalized weakness, increased sleepiness. No changes in appetite, weight loss, or fever or unknown origin. The patient had resolution of his symptoms during this admission. Complete blood count (CBC), metabolic panel, liver function tests were within normal limits. His Lipitor was discontinued due to complaints of myalgias/muscle aches. Total CK was only slightly elevated at 325 with normal creatinine. The patient was prescribed pravastatin, which he does not have prescription coverage for. LABORATORIES ON DISCHARGE: White count 5.7, hemoglobin 13, hematocrit 39, platelet count 209. Sodium 139, potassium 4.2, chloride 106, bicarbonate 26, BUN 11, creatinine 0.97, glucose 127, magnesium 2.1, total bilirubin 0.3, AST 34, ALT 78, alkaline phosphatase 21, total CK 326, MB fraction 3.3, troponin less than 0.02, total protein 7.6, albumin 3.7, triglycerides 159, total cholesterol 195, LDL 169, non HDL 148, total HDL 47. Microbiology: None. Serology: CLINT screen is pending. QuantiFERON test is pending. IMAGING STUDIES: CT of the head on 07/28/[address] of the brain. MRI of the brain showed no acute intracranial pathology. MRA of the brain with normal intracranial vessels. MRI of the carotids showed no carotid artery stenosis. Cervical MRI showed C4-C5, C5-C6 bilateral neuro foramina narrowing with multilevel vertebral hypertrophy. CT of the abdomen and pelvis with nonspecific enlarged precaval lymph nodes, two noted, no other abnormally enlarged lymph nodes in the abdomen or pelvis. No mass in the abdomen or pelvis. FOLLOWUP ISSUES: Due to complaints of night sweats, the patient's primary care provider should refer to hematology, as he also complains of generalized weakness and increase in sleepiness. There are two nonspecific precaval lymph nodes that may need monitoring. Neurology referral for possible carpal tunnel bilaterally, as well as cervical peripheral neuropathy. Defer to neurology for MRI of the lumbar spine and nerve conduction studies or EMG. Time spent on discharge: 30 minutes.
== END 2019-07-29 11:36 | disposition home or self-care (01) | DRG 48 ==
LOC: M ED 11:44 → M ED INP 14:02 → M PSY 14:23 → M ED INP 14:53 → M PCU 16:16
PROVIDERS: ADMIT General Practice; ATTEND General Practice
DX: G62.9 Polyneuropathy, unspecified (principal); M62.82 Rhabdomyolysis; E78.5 Hyperlipidemia, unspecified; K44.9 Diaphragmatic hernia without obstruction or gangrene; G56.03 Carpal tunnel syndrome, bilateral upper limbs; K21.9 Gastro-esophageal reflux disease without esophagitis; G43.909 Migraine, unspecified, not intractable, without status migrainosus; I10 Essential (primary) hypertension; Z88.8 Allergy status to other drugs, medicaments and biological substances; Z87.891 Personal history of nicotine dependence; Z79.899 Other long term (current) drug therapy

== ENCOUNTER → 2019-09-18 | Outpatient (CLI) | payer OTHER ==
[~2019-09-18] MED LIST changes: +AIRD1INH2 INH; +ATOR1TAB19 PO; +DOXY100C37 PO; +GASTROGRAFIN SOLUTION 30ML (Q9963) As Ordered ONE; +ISOVUE-370 76% 100ML VIAL (Q9967) As Ordered ONE; +PRAV1TAB39 PO; +VENTAER INH
--- NOTE | 2019-09-19 04:19 | REP ---
Clinical: Adenopathy. Technique: Axial contrast enhanced images from the thoracic inlet to the upper abdomen with coronal and sagittal re-formations using 100 ml Isovue 370 intravenous contrast material. Comparison: 06/28/2019. Findings: Mediastinum demonstrates normal thoracic aorta, pulmonary vasculature and heart/pericardium. No axillary, hilar, or mediastinal adenopathy. The bilateral lung lozano are well-aerated and symmetric. No consolidation, significant nodule, or mass lesion. No pleural effusion. No pneumothorax. Tracheobronchial tree is patent. Surrounding musculoskeletal structures are intact. Impression: Normal contrast enhanced chest CT. Electronically Signed by Jamison Xiong MD 09/19/2019 04:11 A
--- NOTE | 2019-09-19 04:25 | REP ---
Clinical: Adenopathy. Technique: Axial contrast enhanced images from the lung bases to the pubic symphysis using oral (per protocol) and 100 ml Isovue 370 intravenous contrast material with coronal and sagittal re-formations. Precontrast and delayed images of the abdomen obtained. Comparison: 07/28/2019. Findings: Fatty infiltration to the liver noted without focal hepatic lesion. Spleen, pancreas, gallbladder, bilateral adrenal glands and kidneys are normal. The enteric system is without obstruction or acute inflammatory process. Pelvis demonstrates normal bladder and age appropriate prostate/seminal vesicles. No ascites. No free air. No adenopathy. Abdominal aorta and vasculature normal. Musculoskeletal structures are intact. Impression: Hepatic steatosis, otherwise normal CT of the abdomen and pelvis. No acute abdominopelvic pathology appreciated. Electronically Signed by Jamison Xiong MD 09/19/2019 04:16 A
== END ==
LOC: M RAD 13:00
PROVIDERS: ATTEND Internal Medicine Hematology & Oncology
DX: I86.0 Sublingual varices (principal)
CPT/HCPCS: 71260; 74178; Q9963; Q9967

== ENCOUNTER → 2019-09-30 | Outpatient (CLI) | payer OTHER ==
[~2019-09-30] MED LIST changes: -GASTROGRAFIN SOLUTION 30ML (Q9963) As Ordered ONE; -ISOVUE-370 76% 100ML VIAL (Q9967) As Ordered ONE
--- NOTE | 2019-09-30 19:53 | REP ---
Skeletal survey: AP and lateral skull: There are a few small lucencies. These are nonspecific and could represent venous lakes, echo data granulations or true lytic lesions. AP and lateral cervical spine: There are no lytic lesions. There is degenerative disc disease at C5-6 and C6-7. Thoracic spine AP and lateral views: There are no lytic lesions. There is multilevel degenerative disc disease and mild kyphosis and mild scoliosis convex right. Lumbar spine AP and lateral views: There are no lytic lesions. There is mild degenerative disc disease at L3-4, L4-5 and L5 S1. AP pelvis: There are no lytic lesions. The sacroiliac articulations and hip articulations are unremarkable. Bilateral humeri: There are no lytic lesions. Mineralization is normal. Bilateral femurs : There are no lytic lesions. Mineralization is normal. Electronically Signed by Ted Ramsey MD 09/30/2019 07:44 P
== END ==
LOC: M RAD 15:44
PROVIDERS: ATTEND Internal Medicine Hematology & Oncology
DX: I89.0 Lymphedema, not elsewhere classified (principal)

== ENCOUNTER → 2019-10-21 | Outpatient (CLI) | payer OTHER ==
--- NOTE | 2019-10-23 11:24 | SLEEPHOME ---
DATE OF PROCEDURE: 10/21/2019 ORDERED BY: Dr. Jenniffer Hodges Diagnostic home sleep testing was performed due to concern for the obstructive sleep apnea syndrome in this patient with history of excessive somnolence and nonrestorative sleep who has comorbidities of hypertension and asthma. For testing a nocturnal T3 respiratory monitoring device was used. Continuous record was made of pulse, oxygen saturation, airflow, chest and abdominal strain and body position. 9 hours and 59 minutes of data were reviewed. There were 9 hours marked as time in bed. During the interval marked time in bed, there were 72 respiratory events identified of 10 seconds in duration or greater for a respiratory event index of 80. The events were primarily obstructive, though 28 of the 72 events were more central or mixed in description. Baseline pulse rate 61 beats per minute, pulse rate ranged 53-86. Baseline saturation was 94%. Saturations fell to 90%. Testing was performed in both the supine and nonsupine positions. IMPRESSION: Abnormal home sleep testing with repetitive respiratory events and oxygen desaturations to 90% with a respiratory event index of 80 is consistent with the obstructive sleep apnea syndrome. RECOMMENDATIONS: The patient should be encouraged to undergo formal sleep evaluation, particularly in light of the frequency of central events identified.
== END ==
LOC: M SLEEP HO 10:55
PROVIDERS: ATTEND Internal Medicine Pulmonary Disease
DX: G47.30 Sleep apnea, unspecified (principal)

== ENCOUNTER → 2019-11-27 | Outpatient (CLI) | payer OTHER ==
--- NOTE | 2019-11-28 14:55 | SLEEPCENT ---
DATE OF PROCEDURE: 11/26/2019 ORDERED BY: Dr. Hodges Nocturnal polysomnography was performed for the titration of pressure therapy in this patient with obstructive sleep apnea syndrome based on clinical evaluation confirmed by home testing revealing a respiratory event index of 80. For testing a ResMed AirFit F30 full-face mask of medium size was used; 4 cm of water pressure were applied to the circuit and the lights were extinguished. 8 hours and 13 minutes of data were reviewed. There were 416 minutes of sleep identified. Sleep latency was prolonged 41 minutes. Rapid eye movement (REM) latency was normal at 72 minutes. Sleep architecture initially improved. Overall sleep efficiency was 85.2%. The patient's electrocardiogram showed a sinus rhythm with an average heart rate of 58 beats per minute. Electroencephalogram (EEG) showed normal waveforms for awake and sleep. Respiratory events persisted prompting an increase in CPAP pressure late in the study. Central apneas emerged making further titration difficult. Best sleep was seen on a CPAP pressure of +7. IMPRESSION: Obstructive sleep apnea syndrome (G47.33). RECOMMENDATIONS: Though an optimal pressure for CPAP was unable to be identified during the study the initiation of CPAP at a pressure of +7 should improve the continuity of the patient's sleep. If symptoms persist, close clinical followup is recommended and a full night re-titration once the patient is accustomed to device may be helpful. Given the occurrence of central apneas the use of a bilevel device may be needed at that time as well as a backup rate.
== END ==
LOC: M SLEEP 20:00
PROVIDERS: ATTEND Internal Medicine Pulmonary Disease
DX: G47.33 Obstructive sleep apnea (adult) (pediatric) (principal)

== ENCOUNTER → 2020-06-10 | Outpatient (CLI) | payer OTHER ==
[~2020-06-10] MED LIST changes: +FLON1SPR NARES; +PRED10TA2 PO
[2020-06-10 14:37] LABS: BASO % 0.3 % (0.0-1.0); EOS # 0.1 10^3/uL (0.0-0.5); EOS % 1.9 % (0.0-3.0); HEMOGLOBIN 12.5 g/dl (13.5-17.5); LYMPH # 2.1 10^3/uL (1.5-5.0); LYMPH % 31.3 % (24.0-44.0); MEAN CORPUSCULAR HEMOGLOBIN 30.3 pg (27.0-33.0); MEAN CORPUSCULAR HGB CONC 34.7 g/dl (32.0-36.5); MEAN CORPUSCULAR VOLUME 87.4 fl (80.0-96.0); MONO # 0.8 10^3/uL (0.0-0.8); MONO % 11.8 % (0.0-5.0); NEUTROPHILS # 3.7 10^3/uL (1.5-8.5); NEUTROPHILS % 54.6 % (36.0-66.0); PLATELET COUNT, AUTOMATED 226 10^3/uL (150-450); RED BLOOD COUNT 4.12 10^6/uL (4.30-6.10); WHITE BLOOD COUNT 6.7 10^3/uL (4.0-10.0)
[2020-06-10 15:15] LABS: ALBUMIN 3.9 GM/DL (3.2-5.2); ALT/SGPT 41 U/L (12-78); BILIRUBIN,TOTAL 0.2 MG/DL (0.2-1.0); BLOOD UREA NITROGEN 18 MG/DL (7-18); CALCIUM LEVEL 9.4 MG/DL (8.5-10.1); CARBON DIOXIDE LEVEL 26 MEQ/L (21-32); CHLORIDE LEVEL 104 MEQ/L (98-107); CREATININE FOR GFR 0.99 MG/DL (0.70-1.30); GLOMERULAR FILTRATION RATE > 60.0 (>56); GLUCOSE, FASTING 114 MG/DL (70-100); IMMUNOGLOBULIN G 733 MG/DL (681-1648); IMMUNOGLOBULIN M 89.8 MG/DL (40-230); IRON (FE) 95 UG/DL (65-175); POTASSIUM SERUM 3.9 MEQ/L (3.5-5.1); SODIUM LEVEL 138 MEQ/L (136-145)
--- NOTE | 2020-06-15 09:21 | REP ---
SKULL SERIES HISTORY: Lymph node enlargement. Evaluate lucencies. COMPARISON RADIOGRAPHS: 09/30/2019. FINDINGS: Multiple views of the calvarium show a single stable radiolucency in the right temporoparietal region. This is most compatible with arachnoid granulation. Bony calvarium is otherwise intact. The patient is edentulous. IMPRESSION: No significant calvarial lesion noted. MTDD
== END ==
LOC: M LAB 13:56
PROVIDERS: ATTEND Internal Medicine Hematology & Oncology
DX: R59.9 Enlarged lymph nodes, unspecified (principal); Z88.8 Allergy status to other drugs, medicaments and biological substances

== ENCOUNTER → 2020-06-10 | Outpatient (CLI) | payer OTHER ==
[~2020-06-10] MED LIST changes: -FLON1SPR NARES; -PRED10TA2 PO
--- NOTE | 2020-06-15 09:20 | REP ---
BILATERAL HAND SERIES: 8-VIEWS HISTORY: Bilateral hand pain. Rule out inflammatory arthritis, erosions, soft tissue swelling. FINDINGS: Four views of each hand are presented. Overall mineralization pattern is normal. There is soft tissue swelling along the distal interphalangeal (DIP) joints of the index and long fingers on the right along the radial aspect. There is mild soft tissue swelling about the distal interphalangeal (DIP) joint of the index finger on the left. No erosive change is seen on either side. Joint spaces are preserved. IMPRESSION: Mild soft tissue swelling as above. No erosive changes seen. Normal mineralization. MTDD
== END ==
LOC: M RAD 14:01
PROVIDERS: ATTEND Internal Medicine Rheumatology
DX: M79.10 Myalgia, unspecified site (principal); M25.50 Pain in unspecified joint; M79.89 Other specified soft tissue disorders

== ENCOUNTER → 2021-11-08 | Outpatient (CLI) | payer OTHER ==
[~2021-11-08] MED LIST changes: +DOXY-443 PO; -DOXY100C37 PO; +FLON1SPR NARES; -LISI-538 PO; +LISI20TA33 PO; +OMEP40CA4 PO; -OMEP40CA97 PO; +PRED10TA2 PO
[2021-11-08 10:46] LABS: HEMATOCRIT 35.8 % (42.0-52.0); HEMOGLOBIN 12.2 g/dl (13.5-17.5); MEAN CORPUSCULAR HEMOGLOBIN 29.5 pg (27.0-33.0); MEAN CORPUSCULAR HGB CONC 34.1 g/dl (32.0-36.5); MEAN CORPUSCULAR VOLUME 86.5 fl (80.0-96.0); PLATELET COUNT, AUTOMATED 214 10^3/uL (150-450); RED BLOOD COUNT 4.14 10^6/uL (4.30-6.10); WHITE BLOOD COUNT 6.2 10^3/uL (4.0-10.0)
[2021-11-08 11:17] LABS: ALT/SGPT 37 U/L (12-78); BILIRUBIN,TOTAL 0.2 MG/DL (0.2-1.0); BLOOD UREA NITROGEN 18 MG/DL (7-18); CALCIUM LEVEL 9.7 MG/DL (8.5-10.1); CARBON DIOXIDE LEVEL 29 MEQ/L (21-32); CHLORIDE LEVEL 107 MEQ/L (98-107); CHOLESTEROL LEVEL 177 MG/DL (<200); CREATININE FOR GFR 1.04 MG/DL (0.70-1.30); GLOMERULAR FILTRATION RATE > 60.0 (>56); GLUCOSE, FASTING 107 MG/DL (70-100); HDL CHOLESTEROL 50 MG/DL (>40); LDL CHOLESTEROL 102 MG/DL (<100); NON-HDL-C 127 MG/DL; POTASSIUM SERUM 4.3 MEQ/L (3.5-5.1); SODIUM LEVEL 142 MEQ/L (136-145); TOTAL PROTEIN 7.1 GM/DL (6.4-8.2); TRIGLYCERIDES LEVEL 126 MG/DL (<150)
== END ==
LOC: M WUC 08:24
PROVIDERS: ATTEND Physician Assistant
DX: I10 Essential (primary) hypertension (principal); E78.2 Mixed hyperlipidemia

== ENCOUNTER → 2022-04-29 | Outpatient (REF) | payer OTHER | LOC: M LAB REF 08:48 | PROVIDERS: ATTEND Family Medicine Addiction Medicine | DX: R19.5 Other fecal abnormalities (principal) ==

== ENCOUNTER → 2022-06-16 | Outpatient (CLI) | payer OTHER ==
[~2022-06-16] MED LIST changes: +ATOR1TAB19
== END ==
LOC: M WHC 08:24
PROVIDERS: ATTEND Family Medicine Addiction Medicine
DX: R10.13 Epigastric pain (principal)

== ENCOUNTER → 2022-09-25 | Outpatient (CLI) | payer OTHER | LOC: M LABSMTC 09:40 | PROVIDERS: ATTEND Anesthesiology | DX: Z01.818 Encounter for other preprocedural examination (principal) ==

== ENCOUNTER → 2022-10-29 | Outpatient (CLI) | payer OTHER ==
[2022-10-29 09:34] LABS: CHOLESTEROL RISK RATIO 3.36 (<5); HDL CHOLESTEROL 49.7 MG/DL (>40); LDL CHOLESTEROL 99.9 MG/DL (<100)
== END ==
LOC: M LAB 08:31
PROVIDERS: ATTEND Family Medicine Addiction Medicine
DX: E78.5 Hyperlipidemia, unspecified (principal)

== ENCOUNTER → 2022-11-23 | Outpatient (CLI) | payer OTHER ==
[~2022-11-23] MED LIST changes: -ATOR1TAB19
[2022-11-23 21:53] LABS: BASO % 0.6 % (0.0-1.0); EOS # 0.1 10^3/uL (0.0-0.5); EOS % 1.3 % (0.0-3.0); HEMATOCRIT 37.8 % (42.0-52.0); HEMOGLOBIN 12.5 g/dl (13.5-17.5); LYMPH # 2.5 10^3/uL (1.5-5.0); LYMPH % 37.2 % (24.0-44.0); MEAN CORPUSCULAR HGB CONC 33.1 g/dl (32.0-36.5); MEAN CORPUSCULAR VOLUME 87.7 fl (80.0-96.0); MONO # 0.9 10^3/uL (0.0-0.8); MONO % 12.6 % (2.0-8.0); NEUTROPHILS # 3.3 10^3/uL (1.5-8.5); NEUTROPHILS % 48.2 % (36.0-66.0); PLATELET COUNT, AUTOMATED 233 10^3/uL (150-450); RED BLOOD COUNT 4.31 10^6/uL (4.30-6.10); WHITE BLOOD COUNT 6.8 10^3/uL (4.0-10.0)
[2022-11-23 22:07] LABS: IMMUNOGLOBULIN A 400.2 MG/DL (40-350); IMMUNOGLOBULIN G 799 MG/DL (650-1600)
[2022-11-23 22:08] LABS: IMMUNOGLOBULIN M 90.2 MG/DL (50-300)
[2022-11-23 22:11] LABS: ALBUMIN 4.2 G/DL (3.2-5.2); ALKALINE PHOSPHATASE 26 U/L (46-116); ALT/SGPT 37 U/L (7.0-40); AST/SGOT 33 U/L (<34); BILIRUBIN,TOTAL 0.4 MG/DL (0.3-1.2); BLOOD UREA NITROGEN 20 MG/DL (9-23); CALCIUM LEVEL 9.3 MG/DL (8.5-10.1); CARBON DIOXIDE LEVEL 29 MMOL/L (20-31); CHLORIDE LEVEL 103 MMOL/L (98-107); CREATININE FOR GFR 1.02 MG/DL (0.70-1.30); GLOMERULAR FILTRATION RATE > 60.0 (>56); GLUCOSE, FASTING 83 MG/DL (60-100); POTASSIUM SERUM 3.9 MMOL/L (3.5-5.1); SODIUM LEVEL 141 MMOL/L (136-145)
== END ==
LOC: M WUC 15:50
PROVIDERS: ATTEND Nurse Practitioner
DX: R59.9 Enlarged lymph nodes, unspecified (principal)

== ENCOUNTER 2022-12-07 08:46 | Day surgery (SDC) | payer OTHER ==
[~2022-12-07] VITALS: Ht 157.5 cm; Wt 72.0 kg
[~2022-12-07 08:46] MED LIST changes: +LIDOCAINE 2% 100MG/5ML SDV (FOR ANES.) As Ordered ONE; +NS 1,000 ML IV ONE; +propofoL 200 MG/20 ML VIAL As Ordered ONE
[2022-12-07] MEDS ORDERED: fentaNYL 100 MCG/2 ML INJECTION As Ordered ONE (09:41)
[2022-12-07] MEDS ORDERED: propofoL 200 MG/20 ML VIAL As Ordered ONE (09:42)
[2022-12-07 10:27] VITALS: BP 118/61
== END 2022-12-07 10:38 | disposition home or self-care (01) ==
LOC: M OPP 08:46
PROVIDERS: ATTEND Surgery
DX: R12 Heartburn (principal); K22.89 Other specified disease of esophagus; K22.70 Barrett's esophagus without dysplasia; K21.9 Gastro-esophageal reflux disease without esophagitis
CPT/HCPCS: 43239; 88305; J3010

== ENCOUNTER 2023-06-29 20:46 | Emergency (ER) | payer OTHER ==
[~2023-06-29] VITALS: Ht 157.5 cm; Wt 76.6 kg
[~2023-06-29 20:46] MED LIST changes: -LIDOCAINE 2% 100MG/5ML SDV (FOR ANES.) As Ordered ONE; -NS 1,000 ML IV ONE; -propofoL 200 MG/20 ML VIAL As Ordered ONE
[2023-06-29 20:47] VITALS: BP 145/70; TEMP 98.2; O2SAT 98
[2023-06-29] MEDS ORDERED: DOXYCYCLINE HYCLATE 100MG TABLET PO ONE (21:55)
== END 2023-06-29 22:17 | disposition home or self-care (01) ==
LOC: M ED 20:46
DX: S20.461A Insect bite (nonvenomous) of right back wall of thorax, initial encounter (principal); W57.XXXA Bitten or stung by nonvenomous insect and other nonvenomous arthropods, initial encounter; I10 Essential (primary) hypertension; J45.909 Unspecified asthma, uncomplicated; Z86.73 Personal history of transient ischemic attack (TIA), and cerebral infarction without residual deficits; Z79.899 Other long term (current) drug therapy; Z88.5 Allergy status to narcotic agent; Z88.8 Allergy status to other drugs, medicaments and biological substances

== ENCOUNTER 2023-11-15 14:03 | Emergency (ER) | payer OTHER ==
[~2023-11-15] VITALS: Ht 157.5 cm; Wt 76.4 kg
[2023-11-15] MEDS ORDERED: NAPR-837 PO (16:23)
[2023-11-15 16:44] VITALS: BP 168/81; TEMP 97.3; O2SAT 98
== END 2023-11-15 16:45 | disposition home or self-care (01) ==
LOC: M ED 14:03
DX: M67.824 Other specified disorders of tendon, left elbow (principal); Z88.8 Allergy status to other drugs, medicaments and biological substances; Z79.51 Long term (current) use of inhaled steroids; Z79.899 Other long term (current) drug therapy

== ENCOUNTER → 2023-11-16 | Outpatient (REF) | payer OTHER ==
[~2023-11-16] MED LIST changes: +NAPR-837 PO
[2023-11-16 15:16] LABS: ALBUMIN 4.1 G/DL (3.2-5.2); ALKALINE PHOSPHATASE 20 U/L (46-116); ALT/SGPT 62 U/L (7.0-40); AST/SGOT 34 U/L (<34); BILIRUBIN,TOTAL 0.4 MG/DL (0.3-1.2); BLOOD UREA NITROGEN 22 MG/DL (9-23); CALCIUM LEVEL 9.3 MG/DL (8.5-10.1); CARBON DIOXIDE LEVEL 29 MMOL/L (20-31); CHLORIDE LEVEL 104 MMOL/L (98-107); CHOLESTEROL LEVEL 184 MG/DL (<200); CHOLESTEROL RISK RATIO 4.16 (<5); CREATININE FOR GFR 1.08 MG/DL (0.70-1.30); GLOMERULAR FILTRATION RATE > 60.0 (>56); GLUCOSE, FASTING 103 MG/DL (60-100); HDL CHOLESTEROL 44.2 MG/DL (>40); LDL CHOLESTEROL 107.8 MG/DL (<100); NON-HDL-C 139.8 MG/DL; POTASSIUM SERUM 4.4 MMOL/L (3.5-5.1); SODIUM LEVEL 139 MMOL/L (136-145); TOTAL PROTEIN 6.9 G/DL (5.7-8.2); TRIGLYCERIDES LEVEL 160 MG/DL (<150)
== END ==
LOC: M LAB REF 12:36
PROVIDERS: ATTEND Family Medicine Addiction Medicine
DX: E78.5 Hyperlipidemia, unspecified (principal)

== ENCOUNTER → 2024-02-05 | Outpatient (REF) | payer OTHER ==
[~2024-02-05] MED LIST changes: +DOXY-323 PO; -DOXY-443 PO
[2024-02-05 13:12] LABS: ALBUMIN 3.8 G/DL (3.2-5.2); ALKALINE PHOSPHATASE 27 U/L (46-116); ALT/SGPT 51 U/L (7.0-40); AST/SGOT 28 U/L (<34); BILIRUBIN,TOTAL 0.3 MG/DL (0.3-1.2); BLOOD UREA NITROGEN 20 MG/DL (9-23); CALCIUM LEVEL 9.7 MG/DL (8.5-10.1); CARBON DIOXIDE LEVEL 29 MMOL/L (20-31); CHLORIDE LEVEL 103 MMOL/L (98-107); CHOLESTEROL LEVEL 181 MG/DL (<200); CREATININE FOR GFR 0.91 MG/DL (0.70-1.30); GLOMERULAR FILTRATION RATE > 60.0 (>56); GLUCOSE, FASTING 106 MG/DL (60-100); HDL CHOLESTEROL 46.4 MG/DL (>40); NON-HDL-C 134.6 MG/DL; POTASSIUM SERUM 4.3 MMOL/L (3.5-5.1); SODIUM LEVEL 138 MMOL/L (136-145); TOTAL PROTEIN 6.7 G/DL (5.7-8.2); TRIGLYCERIDES LEVEL 163 MG/DL (<150)
[2024-02-05 13:40] LABS: HEMOGLOBIN A1c 5.2 % (4.0-6.0)
== END ==
LOC: M LAB REF 12:30
PROVIDERS: ATTEND Family Medicine Addiction Medicine
DX: E78.5 Hyperlipidemia, unspecified (principal)

== ENCOUNTER → 2024-06-05 | Outpatient (REF) | payer OTHER ==
[~2024-06-05] MED LIST changes: -DOXY-323 PO; +DOXY-441 PO
[2024-06-05 12:21] LABS: THYROID STIMULATING HORMONE 0.742 uIU/ML (0.55-4.78)
[2024-06-05 12:22] LABS: ALKALINE PHOSPHATASE 28 U/L (46-116); ALT/SGPT 51 U/L (7.0-40); AST/SGOT 28 U/L (<34); BILIRUBIN,TOTAL 0.2 MG/DL (0.3-1.2); BLOOD UREA NITROGEN 19 MG/DL (9-23); CALCIUM LEVEL 9.8 MG/DL (8.5-10.1); CARBON DIOXIDE LEVEL 28 MMOL/L (20-31); CHLORIDE LEVEL 105 MMOL/L (98-107); CHOLESTEROL LEVEL 196 MG/DL (<200); CREATININE FOR GFR 0.99 MG/DL (0.70-1.30); GLOMERULAR FILTRATION RATE > 60.0 (>56); GLUCOSE, FASTING 100 MG/DL (60-100); HDL CHOLESTEROL 45.5 MG/DL (>40); LDL CHOLESTEROL 118.5 MG/DL (<100); NON-HDL-C 150.5 MG/DL; POTASSIUM SERUM 4.3 MMOL/L (3.5-5.1); SODIUM LEVEL 139 MMOL/L (136-145); TOTAL PROTEIN 7.1 G/DL (5.7-8.2); TRIGLYCERIDES LEVEL 160 MG/DL (<150)
== END ==
LOC: M LAB REF 11:45
PROVIDERS: ATTEND Family Medicine Addiction Medicine
DX: E78.5 Hyperlipidemia, unspecified (principal)

== ENCOUNTER → 2024-10-11 | Outpatient (REF) | payer OTHER ==
[2024-10-11 14:51] LABS: ALBUMIN 3.9 G/DL (3.2-5.2); ALKALINE PHOSPHATASE 20 U/L (40-129); ALT/SGPT 45 U/L (7.0-40); AST/SGOT 22 U/L (<34); BILIRUBIN,TOTAL 0.3 MG/DL (0.3-1.2); BLOOD UREA NITROGEN 17 MG/DL (9-23); CALCIUM LEVEL 9.6 MG/DL (8.5-10.1); CARBON DIOXIDE LEVEL 28 MMOL/L (20-31); CHLORIDE LEVEL 106 MMOL/L (98-107); CHOLESTEROL LEVEL 173 MG/DL (<200); CHOLESTEROL RISK RATIO 3.85 (<5); CREATININE FOR GFR 0.94 MG/DL (0.70-1.30); GLOMERULAR FILTRATION RATE > 60.0 (>56); GLUCOSE, FASTING 93 MG/DL (60-100); HDL CHOLESTEROL 44.9 MG/DL (>40); LDL CHOLESTEROL 95.1 MG/DL (<100); NON-HDL-C 128.1 MG/DL; POTASSIUM SERUM 4.8 MMOL/L (3.5-5.1); SODIUM LEVEL 141 MMOL/L (136-145); TOTAL PROTEIN 7.2 G/DL (5.7-8.2); TRIGLYCERIDES LEVEL 165 MG/DL (<150)
[2024-10-11 14:53] LABS: THYROID STIMULATING HORMONE 0.837 uIU/ML (0.55-4.78)
== END ==
LOC: M LAB REF 12:20
PROVIDERS: ATTEND Family Medicine Addiction Medicine
DX: E78.5 Hyperlipidemia, unspecified (principal)

== ENCOUNTER → 2025-04-28 | Outpatient (REF) | payer OTHER ==
[~2025-04-28] MED LIST changes: +CLEO300C2 PO; +PRED20TA PO
[2025-04-28 11:56] LABS: BASO # 0.1 10^3/uL (0.0-0.2); BASO % 0.7 % (0.0-1.0); EOS # 0.4 10^3/uL (0.0-0.5); EOS % 6.6 % (0.0-3.0); LYMPH # 1.9 10^3/uL (1.5-5.0); LYMPH % 28.8 % (24.0-44.0); MONO # 0.8 10^3/uL (0.0-0.8); MONO % 11.2 % (2.0-8.0); NEUTROPHILS # 3.5 10^3/uL (1.5-8.5); NEUTROPHILS % 52.6 % (36.0-66.0); PLATELET COUNT, AUTOMATED 209 10^3/uL (150-450)
[2025-04-28 12:05] LABS: ALT/SGPT 53 U/L (7.0-40); AST/SGOT 34 U/L (<34); CALCIUM LEVEL 9.8 MG/DL (8.5-10.1); CARBON DIOXIDE LEVEL 28 MMOL/L (20-31); CHLORIDE LEVEL 103 MMOL/L (98-107); CHOLESTEROL LEVEL 202 MG/DL (<200); CHOLESTEROL RISK RATIO 4.05 (<5); CREATININE FOR GFR 0.98 MG/DL (0.70-1.30); GLOMERULAR FILTRATION RATE > 90.0 (>56); INR 0.9; LDL CHOLESTEROL 123.4 MG/DL (<100); NON-HDL-C 152.2 MG/DL; POTASSIUM SERUM 4.4 MMOL/L (3.5-5.1); SODIUM LEVEL 141 MMOL/L (136-145); TRIGLYCERIDES LEVEL 144 MG/DL (<150)
== END ==
LOC: M LAB REF 11:39
PROVIDERS: ATTEND Family Medicine Addiction Medicine
DX: E78.5 Hyperlipidemia, unspecified (principal); R74.8 Abnormal levels of other serum enzymes

== ENCOUNTER → 2025-05-20 | Outpatient (CLI) | payer OTHER | LOC: M PLAIMG 08:04 | PROVIDERS: ATTEND Family Medicine Addiction Medicine | DX: M79.89 Other specified soft tissue disorders (principal); M65.841 Other synovitis and tenosynovitis, right hand ==

== ENCOUNTER 2025-06-10 17:15 | Emergency (ER) | payer OTHER ==
[~2025-06-10] VITALS: Ht 157.5 cm; Wt 71.8 kg
[2025-06-10 19:35] VITALS: TEMP 97.7; O2SAT 99
[2025-06-10] MEDS ORDERED: IBUP600T42 PO (20:58)
[2025-06-10] MEDS ORDERED: METH-1165 PO (20:58)
[2025-06-10] MEDS: IBUPROFEN 600 MG TAB PO ONE (21:33)
[2025-06-10 21:34] VITALS: BP 156/83
== END 2025-06-10 21:37 | disposition home or self-care (01) ==
LOC: M ED 17:15
DX: S00.83XA Contusion of other part of head, initial encounter (principal); S13.4XXA Sprain of ligaments of cervical spine, initial encounter; Y92.9 Unspecified place or not applicable; Y93.9 Activity, unspecified; Y99.9 Unspecified external cause status; V49.40XA Driver injured in collision with unspecified motor vehicles in traffic accident, initial encounter; I10 Essential (primary) hypertension; E78.5 Hyperlipidemia, unspecified; J45.909 Unspecified asthma, uncomplicated; K21.9 Gastro-esophageal reflux disease without esophagitis; Z88.8 Allergy status to other drugs, medicaments and biological substances; Z79.51 Long term (current) use of inhaled steroids; Z79.2 Long term (current) use of antibiotics; Z79.1 Long term (current) use of non-steroidal anti-inflammatories (NSAID); Z79.899 Other long term (current) drug therapy; Z79.52 Long term (current) use of systemic steroids

== ENCOUNTER → 2025-08-04 | Outpatient (REF) | payer OTHER ==
[~2025-08-04] MED LIST changes: +IBUP600T42 PO; +METH-1165 PO
[2025-08-04 13:55] LABS: ALT/SGPT 51 U/L (7.0-40); AST/SGOT 32 U/L (<34); C REACTIVE PROTEIN QUANTITATIV < 0.50 MG/DL (<1.0); CALCIUM LEVEL 9.6 MG/DL (8.5-10.1); CARBON DIOXIDE LEVEL 29 MMOL/L (20-31); CHLORIDE LEVEL 102 MMOL/L (98-107); CHOLESTEROL LEVEL 174 MG/DL (<200); CHOLESTEROL RISK RATIO 4.00 (<5); CREATININE FOR GFR 0.93 MG/DL (0.70-1.30); GLOMERULAR FILTRATION RATE > 90.0 (>56); LDL CHOLESTEROL 80.4 MG/DL (<100); NON-HDL-C 130.6 MG/DL; POTASSIUM SERUM 4.4 MMOL/L (3.5-5.1); RHEUMATOID FACTOR QUANT 3.5 IU/ML (<14); SODIUM LEVEL 140 MMOL/L (136-145); TRIGLYCERIDES LEVEL 251 MG/DL (<150)
== END ==
LOC: M LAB REF 12:16
PROVIDERS: ATTEND Family Medicine Addiction Medicine
DX: E78.5 Hyperlipidemia, unspecified (principal); M79.641 Pain in right hand

== ENCOUNTER → 2025-08-18 | Outpatient (CLI) | payer OTHER | LOC: M SOG 07:47 | PROVIDERS: ATTEND Physician Assistant | DX: M79.642 Pain in left hand (principal) ==